=== PATIENT | female | born 1970 | race Caucasian/White ===

== ENCOUNTER 2022-12-11 17:19 | Emergency (ER) | payer OTHER ==
[~2022-12-11] VITALS: Ht 170.2 cm; Wt 72.6 kg
[~2022-12-11 17:19] MED LIST: BUPR150T2 PO; CLON.5 PO; HYDACE5 PO; LORA1 PO
[2022-12-11 17:54] VITALS: BP 120/77
[2022-12-11] MEDS ORDERED: TRAZ50 PO (17:55)
== END 2022-12-11 17:55 | disposition home or self-care (01) ==
LOC: ER 17:19
DX: Z76.0 Encounter for issue of repeat prescription (principal); F32.A Depression, unspecified
CPT/HCPCS: 99281

== ENCOUNTER 2023-02-08 16:32 | Emergency (ER) | payer OTHER ==
[~2023-02-08] VITALS: Ht 170.2 cm; Wt 74.8 kg
[~2023-02-08 16:32] MED LIST changes: +TRAZ50 PO
[2023-02-08 16:49] VITALS: BP 122/69
[2023-02-08] MEDS ORDERED: TRAZ50 PO (16:52)
[2023-02-08] MEDS ORDERED: BUPR150ER PO (16:52)
== END 2023-02-08 16:53 | disposition home or self-care (01) ==
LOC: ER 16:32
DX: Z76.0 Encounter for issue of repeat prescription (principal)
CPT/HCPCS: 99281